=== PATIENT | male | born 1960 | race Caucasian/White ===

== ENCOUNTER 2016-12-25 15:38 | Emergency (ER) | payer MEDICARE, BC ==
[2016-12-25] MEDS ORDERED: KETOROLAC 60 MG/2 ML VIAL IM STA (16:47)
[2016-12-25] MEDS ORDERED: ORPHENADRINE CITRATE 60MG/2ML VIAL IM ONE (16:47)
--- NOTE | 2016-12-25 16:48 | Emergency Department Record ---
History of Present Illness - General Chief Complaint: Back Pain/Injury Stated Complaint: LOWER BACK PAIN Time Seen by Provider: 12/25/16 16:38 Source: Patient, RN notes reviewed - History of Present Illness Initial Comments: right lower back pain right side and pain doesn't radiate. Patient had a similiar problem 2003 . Complaint: Back pain Onset/Timin -: Week(s) Similar Symptoms Previously: Yes Place: Home Radiation: Other Severity: Severe Severity scale (1-10): 8 Quality: Sharp, Stabbing Consistency: Constant, Intermittent Improves With: None Worsens With: None Context: Unknown Treatments Prior to Arrival: Heat therapy Treatment Prior to Arrival Comment:: Tramadol and Gabapentin - Related Data Home Medications Medication Instructions Recorded Confirmed Last Taken Gabapentin [Neurontin] 800 mg PO TID 12/25/16 12/25/16 12/25/16 Lisinopril [Zestril] 5 mg PO DAILY 12/25/16 12/25/16 12/25/16 Sulindac 200 mg PO DAILY 12/25/16 12/25/16 12/25/16 Tramadol HCl 50 mg PO TID 12/25/16 12/25/16 12/25/16 Previous Rx's Medication Instructions Recorded Cyclobenzaprine HCl [Flexeril] 10 mg PO TID #30 tablet 12/25/16 Naproxen [Naprosyn] 500 mg PO Q12H #30 tab. 12/25/16 Allergies Allergy/AdvReac Type Severity Reaction Status Date / Time No Known Drug Allergies Allergy Verified 12/25/16 16:16 Travel Screening - Travel/Exposure Within Last 30 Days Have you traveled within the last 30 days?: No Past Medical History - SOCIAL HISTORY Smoking Status: Current every day smoker Alcohol Use: None Drug Use: None - RESPIRATORY Hx Respiratory Disorders: Yes Hx Sleep Apnea: Yes Hx of CPAP: Yes - CARDIOVASCULAR Hx Cardio Disorders: Yes Hx Hypertension: Yes - NEURO Hx Neuro Disorders: No - GI Hx GI Disorders: No - Hx Genitourinary Disorders: No - ENDOCRINE Hx Endocrine Disorders: No - MUSCULOSKELETAL Hx Musculoskeletal Disorders: Yes - PSYCH Hx Psych Problems: No - HEMATOLOGY/ONCOLOGY Hx Hematology/Oncology Disorders: No Family Medical History Any Significant Family History?: No Course Vital Signs 12/25/16 16:09 Temperature 97.6 F Pulse Rate 78 Respiratory 14 Rate Blood Pressure 145/92 Pulse Ox 98 Disposition Clinical Impression: Lumbar strain Qualifiers: Encounter type: initial encounter Qualified Code(s): S39.012A - Strain of muscle, fascia and tendon of lower back, initial encounter Disposition: Home, Self-Care Condition: (1) Good Instructions: Low Back Strain (ED) Additional Instructions: heat to back four times a day follow up with family stop sulidac when on naprosyn Prescriptions: Cyclobenzaprine HCl [Flexeril] 10 mg PO TID #30 tablet Naproxen [Naprosyn] 500 mg PO Q12H #30 tab.dr Forms: Patient Portal Access Time of Disposition: 17:38
== END 2016-12-25 17:47 | disposition home or self-care (01) ==
LOC: ER 15:38
DX: S39.012A Strain of muscle, fascia and tendon of lower back, initial encounter (principal); X58.XXXA Exposure to other specified factors, initial encounter; Y92.009 Unspecified place in unspecified non-institutional (private) residence as the place of occurrence of the external cause
CPT/HCPCS: 96372; 99283; J1885; J2360